=== PATIENT | male | born 1970 | race Caucasian/White ===

== ENCOUNTER 2017-11-19 00:04 | Inpatient (IN) | payer BC ==
[~2017-11-19] VITALS: Ht 182.9 cm; Wt 91.5 kg
[2017-11-19 00:44] LABS: HEMATOCRIT 42.6 % (38.0-50.0); MCH 32.1 PG (29.0-34.0); MCHC 35.2 G/DL (30.0-36.0); MCV 91.2 FL (86-99); PLATELET COUNT 235 K/uL (156-360); RBC DIS.WIDTH-CV 11.5 % (11.8-14.6); RBC DIS.WIDTH-SD 38.9 % (39-53); RED BLOOD COUNT 4.67 M/uL (4.00-5.50); WHITE BLOOD COUNT 8.4 K/uL (4.1-10.2)
[2017-11-19 00:50] LABS: INTER. NORMALIZED RATIO 1.3
[2017-11-19 00:53] LABS: PTT 33.7 SEC (25-37)
[2017-11-19 01:08] LABS: CHLORIDE 106 mEq/L (99-109); POTASSIUM 4.2 mEq/L (3.7-5.4); SODIUM 138 mEq/L (136-147)
[2017-11-19 01:09] LABS: GLUCOSE 111 mg/dL (70-99)
[2017-11-19 01:13] LABS: CREATININE 0.8 mg/dL (0.6-1.3); GFR ESTIMATE (CALCULATED) > 59 mL/min/ (58.99-99999)
[2017-11-19 01:14] LABS: UREA NITROGEN (BUN) 20 mg/dL (9-23)
[2017-11-19 01:53] LABS: TROP-I INTERPRETATION NEGATIVE; TROPONIN-I < 0.01 ng/mL (0.0-0.30)
[2017-11-19 05:38] LABS: ALBUMIN 3.4 g/dL (3.2-4.8)
[2017-11-19 05:40] LABS: TOTAL PROTEIN 6.2 g/dL (6.4-8.3)
[2017-11-19 05:42] LABS: TOTAL BILIRUBIN 0.8 mg/dL (0.0-1.0)
[2017-11-19 05:43] LABS: ALKALINE PHOSPHATASE 68 IU/L (3-129)
[2017-11-19 05:46] LABS: ALT (GPT) 15 IU/L (3-49); AST (GOT) 12 IU/L (2-34); DIRECT BILIRUBIN 0.4 mg/dL (0.0-0.3)
[2017-11-19 13:21] VITALS: BP 128/77
[2017-11-19 15:34] VITALS: BP 131/77
[2017-11-19 17:38] LABS: TROP-I INTERPRETATION NEGATIVE; TROPONIN-I 0.01 ng/mL (0.0-0.30)
[2017-11-19 19:15] VITALS: BP 115/71
[2017-11-20 03:00] VITALS: BP 94/53
[2017-11-20 03:13] LABS: BASOPHIL (%) 0.4 % (0-1); EOSINOPHIL (%) 0.7 % (0-5); EOSINOPHIL COUNT 0.1 K/uL (0-0.3); HEMATOCRIT 39.1 % (38.0-50.0); IMMATURE GRANULOCYTE (%) 0.4 % (0.0-0.7); LYMPHOCYTE (%) 16.7 % (15-42); LYMPHOCYTE COUNT 1.4 K/uL (1.0-2.8); MCH 32.2 PG (29.0-34.0); MCHC 35.8 G/DL (30.0-36.0); MCV 89.9 FL (86-99); MONOCYTE (%) 10.2 % (3-12); MONOCYTE COUNT 0.9 K/uL (0-0.8); NEUTROPHIL (%) 71.6 % (45-76); NEUTROPHIL COUNT 6.1 K/uL (1.8-6.4); PLATELET COUNT 243 K/uL (156-360); RBC DIS.WIDTH-CV 11.3 % (11.8-14.6); RBC DIS.WIDTH-SD 37.3 % (39-53); RED BLOOD COUNT 4.35 M/uL (4.00-5.50); WHITE BLOOD COUNT 8.5 K/uL (4.1-10.2)
[2017-11-20 03:34] LABS: CHLORIDE 103 mEq/L (99-109); POTASSIUM 4.4 mEq/L (3.7-5.4); SODIUM 138 mEq/L (136-147)
[2017-11-20 03:47] LABS: ALBUMIN 3.4 g/dL (3.2-4.8)
[2017-11-20 03:50] LABS: GLUCOSE 113 mg/dL (70-99); TOTAL PROTEIN 5.9 g/dL (6.4-8.3)
[2017-11-20 03:52] LABS: TOTAL BILIRUBIN 0.8 mg/dL (0.0-1.0)
[2017-11-20 03:53] LABS: ALKALINE PHOSPHATASE 72 IU/L (3-129)
[2017-11-20 03:54] LABS: CREATININE 0.9 mg/dL (0.6-1.3); GFR ESTIMATE (CALCULATED) > 59 mL/min/ (58.99-99999)
[2017-11-20 03:55] LABS: AST (GOT) 13 IU/L (2-34); UREA NITROGEN (BUN) 14 mg/dL (9-23)
[2017-11-20 03:57] LABS: ALT (GPT) 17 IU/L (3-49)
[2017-11-20 07:34] VITALS: BP 122/72
[2017-11-20 12:03] VITALS: BP 119/66
[2017-11-20 13:33] VITALS: BP 111/63
[2017-11-20 14:57] VITALS: BP 135/80
[2017-11-20 19:00] VITALS: BP 128/69
[2017-11-21 05:00] VITALS: BP 121/69
[2017-11-21 07:30] VITALS: BP 120/67
[2017-11-21 11:27] VITALS: BP 140/75
[2017-11-21 16:00] VITALS: BP 125/74
[2017-11-21 19:30] VITALS: BP 122/73
[2017-11-22 00:02] LABS: LUPA PHOSPHOLIPID NEUTRALIZ Negative (Negative)
[2017-11-22 02:45] VITALS: BP 123/75
[2017-11-22 07:24] VITALS: BP 118/70
[2017-11-22] MEDS ORDERED: ENDOCET 5-3251 EACH PO (09:24)
[2017-11-22] MEDS ORDERED: ELIQUIS5 MG PO ×3 (10:56→11:00)
[2017-11-22 12:29] VITALS: BP 113/72
[2017-11-22 12:59] VITALS: BP 108/68
[2017-11-23 23:37] LABS: ACTIVATED PROTEIN C RESIST+ 4.3 ratio (>=2.1); DRVVT Mixing Study Interp Not Indicated (()); FACTOR VIII ACTIVITY+ 132 % (50-180); PROTEIN C FUNCTIONAL ACTIVITY+ 159 % (70-180); PTT-LA >200 sec (<=40); Protein S, Free 109 % normal (57-171); dRVVT Screen 57 sec (<=45)
[2017-11-24 11:09] LABS: ANTITHROMBIN III ACTIVITY+ 107 % activi (80-120)
== END 2017-11-22 14:09 | disposition home or self-care (01) | DRG 299 ==
LOC: EME 00:04 → EDOF 04:05 → 4EAST 04:05 → ENRESERV 04:10 → 4EAST 13:14
PROVIDERS: Family Medicine; Hospitalist; Internal Medicine Hematology & Oncology; Nurse Practitioner Family; Student in an Organized Health Care Education/Training Program
DX: I82.402 Acute embolism and thrombosis of unspecified deep veins of left lower extremity (principal); I26.99 Other pulmonary embolism without acute cor pulmonale; K58.9 Irritable bowel syndrome, unspecified; I25.10 Atherosclerotic heart disease of native coronary artery without angina pectoris; I87.009 Postthrombotic syndrome without complications of unspecified extremity; Z80.42 Family history of malignant neoplasm of prostate
CPT/HCPCS: 71046; 71275; 74176; 80048; 80053; 80076; 81240 90; 81241 90; 83090 90; 83880; 84153; 84484; 85025; 85027; 85240 90; 85300 90; 85303 90; 85305 90; 85306 90; 85307 90; 85610; 85613 90; 85730; 85730 90; 86146 90; 86147 90; 93005; 93306; 99281; 99285; J3010; J7040